=== PATIENT | female | born 1985 | race Caucasian/White ===

== ENCOUNTER 2019-11-16 14:11 | Emergency (ER) | payer OTHER ==
[~2019-11-16] VITALS: Ht 170.2 cm; Wt 63.5 kg
[2019-11-16 14:20] VITALS: Ht 170.2 cm; Wt 63.5 kg
[2019-11-16 14:53] LABS: CALCIUM 8.6 mg/dL (8.5-10.1); CARBON DIOXIDE 26.3 mmol/L (21-32); CHLORIDE SERUM 103 mmol/L (98-107); CREATININE SERUM 0.7 mg/dL (0.6-1.0); GFR1 > 60 mL/min; GLUCOSE SERUM 104 mg/dL (74-106); POTASSIUM SERUM 3.8 mmol/L (3.5-5.1); SODIUM SERUM 138 mmol/L (136-145)
[2019-11-16 14:57] LABS: ALBUMIN 3.8 g/dL (3.4-5.0); ALKALINE PHOSPHATASE 58 U/L (46-116); ALT/SGPT 92 U/L (14-59); AST/SGOT 32 U/L (15-37); BILIRUBIN TOTAL 0.4 mg/dL (0.20-1.00); MAGNESIUM 1.8 mg/dL (1.8-2.4); TOTAL PROTEIN, SERUM 7.3 g/dL (6.4-8.2)
[2019-11-16 16:45] VITALS: BP 110/82
[2019-11-16 16:58] LABS: AMPHETAMINE QUAL UR NONE DETECTED (See below)
== END 2019-11-16 16:45 | disposition home or self-care (01) ==
LOC: ED 14:11
PROVIDERS: Specialist
DX: G40.909 Epilepsy, unspecified, not intractable, without status epilepticus (principal)
CPT/HCPCS: G0480; J7030